=== PATIENT | male | born 1970 | race Caucasian/White ===

== ENCOUNTER 2024-04-10 20:37 | Emergency (ER) | payer BC, SELFPAY ==
[2024-04-10 20:38] VITALS: BP 198/104
--- NOTE | 2024-04-10 23:11 | ED.MUSCINJ ---
HPI-Injury
<KELSEA Hoover - Last Filed: 04/11/24 03:05>
General
Chief Complaint: Musculo-Skeletal Complaint
Source: patient
Exam Limitations: none
Time Seen by Provider: 04/10/24 22:53
Travel History
Have you had any contact with someone who has COVID-19?: No
Do you have any symptoms of coronavirus? Fever > 100 degrees, chills, cough, shortness of breath, sore throat, loss of taste or smell, muscle aches, or headache?: No
History of Present Illness-Injury
Initial Injury comments:
This is a 53 YO M with a PMH of Crohn's s/p surgery August 2023 and high cholesterol that presents here today for left medial knee pain and swelling x 4 days. 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 He was getting up at work and felt a click in his left knee,
immediately feeling pain. He reports associated swelling in his left leg with radiation to his left calf and quadriceps. He has been taking Advil and Tylenol without relief. He also took Vicodin today without relief. Pt reports he has been icing
the left left knee for 30 minutes once daily over the past four days. He also has been elevating his left knee. He reports this did not alleviate his pain, which prompted him to come in tonight.
Denies past orthopedic surgical history. Denies recent trauma or fall to the left leg.
Review of Systems
<KELSEA Hoover - Last Filed: 04/11/24 03:05>
Review of Systems
Allergies reviewed?: Yes
Constitutional: Reports no symptoms
EENT: Reports no symptoms
Respiratory: Reports no symptoms
Cardiac: Reports no symptoms
ABD/GI: Reports no symptoms
: Reports no symptoms
Musculoskeletal: Reports joint swelling, muscle pain and muscle stiffness
Skin: Reports no symptoms
Neurological: Reports no symptoms
Endocrine: Reports no symptoms
Phy Exam
<ST SnehaVT - Last Filed: 04/11/24 03:05>
Physical Exam
Physical Exam:
+Pain with extension and flexion of the left knee
+Tenderness over the medial meniscus
+Tenderness over the left quadriceps and left calf
No pain over the patellar tendon
General Physical Exam
General Presentation: well appearing
General age: appears stated age
General Skin: warm and dry
General Habitus: normal
General Mental: alert
Musculoskeletal Exam
Musculoskeletal Exam: other (Left knee pain and tenderness over the medial meniscus)
Psychiatric Exam
Psychiatric Exam: normal mood/affect
Injury Course
<ST SnehaVT - Last Filed: 04/11/24 03:05>
Orders/Labs/Results
Orders:
Orders
04/10/24 20:41
Knee, Left 4 or More Views [CR Knee - Left 4 Or More View*] Urgent
Comment:
Reason For Exam: PAIN AND SWELLING SINCE TUESDAY
04/10/24 23:45
US Periph Venous LOWER Ext LT Urgent
Comment:
Reason For Exam: left calf swelling
04/11/24 00:13
Knee Immobilizer Left-Treatmen ONCE
<Kenton Diaz DO - Last Filed: 04/11/24 00:37>
Orders/Labs/Results
Orders:
Orders
04/10/24 20:41
Knee, Left 4 or More Views [CR Knee - Left 4 Or More View*] Urgent
Comment:
Reason For Exam: PAIN AND SWELLING SINCE TUESDAY
04/10/24 23:45
US Periph Venous LOWER Ext LT Urgent
Comment:
Reason For Exam: left calf swelling
04/11/24 00:13
Knee Immobilizer Left-Treatmen ONCE
<Malinda Underwood [facility] - Last Filed: 04/11/24 03:05>
MDM/Problems Addressed
Differential Diagnosis Includes:
Left medial meniscal tear, Left MCL sprain, Left ACL tear
MDM/Problems Addressed:
Medial left knee tenderness/pain/swelling x 4 days
<KELSEA Hoover - Last Filed: 04/11/24 03:05>
*Critical Care Note
Total Time (30-74mins, 75-104mins- exclusive of procedures): Not Applicable
ED Attending Note
<KELSEA Hoover - Last Filed: 04/11/24 03:05>
-
Portions of this chart may have been created with voice recognition software.� Occasional wrong word or��sound alike� substitutions may have occurred due to the inherent limitations of voice recognition software.
<Kenton Diaz DO - Last Filed: 04/11/24 00:37>
ED Attending Note
Patient seen and examined by attending physician: Yes
I performed the substantive portion of visit, reviewed & personally made and approve the management plan that is documented in note by myself or KATHRINE.: Yes
ED Attending Note:
This a pleasant 53-year-old male presents with left medial leg pain and swelling for the last 4 days. Patient denies any obvious trauma. He works as a voting machine mechanic and is on his knees often. He was getting up from the kneeling position when he felt
pain. Patient reports radiation to his left calf and quadricep. He noted that his left calf was more swollen today. He did take NSAIDs and Tylenol without relief. He took Vicodin, also without much help. He has been using rest and ice which has
been helping slightly. Patient denies any other complaints. Patient was seen in conjunction with the PA student. I have reviewed and agree with the history and treatment plan presented. On my independent physical exam, patient is awake, alert,
and oriented x3. Ambulatory. Patient has medial joint line tenderness of the knee. There is a very slightly ballotable patella. All major landmarks of the knee are intact. Calf is slightly larger on the left than the right. X-ray shows no
fracture or dislocation. Plan is to ultrasound the knee and calf.
Ultrasound of the leg is negative.
Patient to get knee immobilizer and crutches. To follow-up with orthopedics.
Discharge Plan
Departure
Patient Disposition: Home (Routine Discharge)
Date of Disposition: 04/11/24
Time of Disposition: 00:34
Patient with high blood pressure during this ER visit?: Yes
Condition: Good
Discharge Problem:
Internal derangement of knee
Instructions: Knee Immobilizer (DC), Knee Pain (DC), Using Cold for Pain
Referrals:
Maikel Zurita MD [Active] - Call in 1-3 days for appt
Leana Gordon DO [Family Provider] -
Activity Restrictions/Additional Instructions:
It was a pleasure meeting you and taking part in your care. We hope for your continued healing and wellness.
Please read discharge instructions in their entirety. However, they are for general education and may not describe your exact diagnosis at discharge. Information on your ER visit and medical conditions were discussed with you along with appropriate
follow up information...
If indicated, please take your medications as instructed and indicated on discharge paperwork.
Please schedule a follow up appointment as directed. Call to schedule an appointment
Please return to the emergency department with ANY change in, persisting, or worsening of symptoms. If any of your symptoms do not improve, or persist, or become more severe within 6-12 hours, please return to the emergency department for further
care.
Please return to the emergency department if you develop a headache, neck pain/stiffness, fever greater than 100.4F, chest pain, shortness of breath, persistent nausea, vomiting, slurred speech, difficulty walking, numbness/tingling, weakness, signs
of infection or any other symptoms that are worrisome to you.
If you have any questions or concerns please do not hesitate to call the Hospital at or E-mail me directly at [email or web address]
Interventions
Interventions:
*Risk Screen - Suicide Last Done: 04/10/24 20:38
*General Assessment Last Done: 04/10/24 21:49
*Neglect/Abuse Screening Last Done: 04/10/24 20:38
*Nursing Disposition Last Done: 04/11/24 00:49
ED-Musculoskeletal Assessment Last Done: 04/10/24 21:49
Discharge Date and Time
Discharge Date/Time: 04/11/24 00:50
Print Language: CROATIAN
[2024-04-11 00:48] VITALS: BP 140/100
[2024-04-11 00:49] VITALS: BP 140/100
== END 2024-04-11 00:50 | disposition home or self-care (01) ==
LOC: EMR 20:37
PROVIDERS: EMERGENCY PHYSICIAN Student in an Organized Health Care Education/Training Program; FAMILY PHYSICIAN Internal Medicine
DX: M23.92 Unspecified internal derangement of left knee (principal); E78.00 Pure hypercholesterolemia, unspecified; K50.90 Crohn's disease, unspecified, without complications
CPT/HCPCS: 99284; 29505; 73564; 93971